=== PATIENT | male | born 1995 | race Caucasian/White ===

== ENCOUNTER 2017-11-27 16:32 | Emergency (ER) | payer SELFPAY ==
[~2017-11-27] VITALS: Ht 185.4 cm; Wt 74.8 kg
[2017-11-27 16:35] VITALS: BP_SYST 117
--- NOTE | 2017-11-27 16:35 | NUR ---
Patient triaged and placed in waiting room. VSS and patient appears in no acute distress at this time. Accompanied by FRIEND, awaiting available bed, and MD notified of need for MSE.
--- NOTE | 2017-11-27 17:02 | NUR ---
BROUGHT BACK TO [facility], REPORT GIVEN TO MATTHEW
--- NOTE | 2017-11-27 17:07 | NUR ---
Patient brought in with significant other complaining of fever, congestion, body aches and sore throat x 3 days. Patient complains of malaise. Lungs are clear. 4/10 dull bodyaches. Patient took tylenol 1 gm 2 hours prior to arrival in ED. No other complaints/injuries per patient or as noted. Will continue to monitor.
[2017-11-27 18:06] VITALS: BP_SYST 117
--- NOTE | 2017-11-27 18:06 | NUR ---
Patient given written and verbal discharge instructions and verbalizes understanding. ER MD discussed with patient the results and treatment provided. Patient in stable condition. ID arm band removed. Rx of Prednisone and Motrin given. Patient educated on pain management and to follow up with PMD in 2-3 days. Pain Scale 0/10 Opportunity for questions provided and answered. Medication side effect fact sheet provided.
== END 2017-11-27 18:06 | disposition home or self-care (01) ==
LOC: SED 16:32
DX: J11.1 Influenza due to unidentified influenza virus with other respiratory manifestations (principal); F17.210 Nicotine dependence, cigarettes, uncomplicated
CPT/HCPCS: 99283